=== PATIENT | female | born 2000 | race Two or more races ===

== ENCOUNTER 2021-02-17 10:15 | Outpatient (CLI) | payer OTHER | END 2021-02-17 10:30 | disposition home or self-care (01) | LOC: PPH VACUNA 10:15 | PROVIDERS: ATTEND Emergency Medicine Pediatric Emergency Medicine | DX: Z23 Encounter for immunization (principal) ==

== ENCOUNTER 2021-10-26 08:28 | Emergency (ER) | payer OTHER ==
[~2021-10-26] VITALS: Ht 160 cm; Wt 110.2 kg
== END 2021-10-26 15:09 | disposition left against medical advice (07) ==
LOC: ER 08:28
DX: K52.9 Noninfective gastroenteritis and colitis, unspecified (principal)

== ENCOUNTER → 2022-10-15 | Emergency (ER) | payer OTHER ==
[~2022-10-15] VITALS: Ht 160 cm; Wt 99.8 kg
[~2022-10-15] MED LIST: TUSNEL LIQUID178 ML PO; ZITHROMAX500 MG PO; ZYRTEC10 MG PO
== END | disposition home or self-care (01) ==
LOC: ER 09:51
PROVIDERS: General Practice
DX: B34.9 Viral infection, unspecified (principal); R53.81 Other malaise; Z20.822 Contact with and (suspected) exposure to COVID-19

== ENCOUNTER 2022-10-25 12:02 | Emergency (ER) | payer OTHER ==
[~2022-10-25] VITALS: Ht 160 cm; Wt 99.8 kg
== END 2022-10-25 14:53 | disposition home or self-care (01) ==
LOC: ER 12:02
DX: J10.1 Influenza due to other identified influenza virus with other respiratory manifestations (principal)

== ENCOUNTER 2022-12-12 15:22 | Outpatient (CLI) | payer OTHER ==
[2022-12-12 15:36] LABS: HEMATOCRIT 30.5 % (36.0-45.00); HEMOGLOBIN 9.3 g/dL (12.0-15.00); MEAN CELL VOLUME 66.9 fL (80.00-100.00); MEAN CORPUSCULAR HEMOGLOBIN 20.4 pg (27.00-32.0); MEAN CORPUSCULAR HGB CONC 30.5 g/dl (32.0-36.0); PLATELET COUNT 513 K/uL (150-450); RED BLOOD COUNT 4.55 M/uL (4.00-6.00); RED CELL DISTRIBUTION WIDTH 18.5 % (11.5-14.5)
== END 2022-12-12 15:23 | disposition home or self-care (01) ==
LOC: LAB 15:22
PROVIDERS: ATTEND General Practice
DX: D64.9 Anemia, unspecified (principal)

== ENCOUNTER 2023-04-23 13:00 | Outpatient (CLI) | payer OTHER | END 2023-04-23 13:10 | disposition home or self-care (01) | LOC: PPH VACUNA 13:00 | PROVIDERS: ATTEND Emergency Medicine Pediatric Emergency Medicine | DX: Z23 Encounter for immunization (principal) ==

== ENCOUNTER 2023-05-14 12:36 | Inpatient (IN) | payer OTHER ==
[~2023-05-14] VITALS: Ht 160 cm; Wt 113.4 kg
--- NOTE | 2023-05-14 14:10 | NUR ---
PTE ALERTA Y ORIENTADA X3 REFIERE VENIR A MARIA LUZ DEBIDO A QUE LA MISMA TIENE DOLOR DE JASSI, DOLOR CORPORAL, ESCALOFRIOS Y DOLOR EN LA [place]. SE BOB S/V Y SE COLOCA EN MARIA LUZ DE ESPERA.
[2023-05-14] MEDS ORDERED: IPRATROPIUM BROMIDE 0.5 MG/2.5 ML AMPUL.NEB IH ONE (15:00)
[2023-05-14] MEDS ORDERED: LEVALBUTEROL HCL 0.63 MG/3 ML SOLUTION IH ONE (15:00)
--- NOTE | 2023-05-14 15:27 | NUR ---
PACIENTE ALERTA Y ORIENTADA X 3. SE ORIENTA DE TRATAMIENTO MILENA ORDEN MEDICA REFIERE ENTENDER. SE BOB MUESTRAS CON MEDIDAS ASEPTICAS CORRESPONDIENTES Y SE NOTIFICAN TERAPIAS A MR SIHLO TERAPISTA RESPIRATORIO.
[2023-05-14 15:38] LABS: MEAN CORPUSCULAR HGB CONC 30.2 g/dl (32.0-36.0); PLATELET COUNT 540 K/uL (150-450); RED BLOOD COUNT 4.54 M/uL (4.00-6.00); RED CELL DISTRIBUTION WIDTH 19.3 % (11.5-14.5)
[2023-05-14 15:39] LABS: MEAN CELL VOLUME 57.6 fL (80.00-100.00); MEAN CORPUSCULAR HEMOGLOBIN 17.4 pg (27.00-32.0)
[2023-05-14 15:43] LABS: HEMOGLOBIN 7.9 g/dL (12.0-15.00)
[2023-05-14 15:44] LABS: HEMATOCRIT 26.1 % (36.0-45.00)
[2023-05-14 18:00] LABS: PH,URINE 6.5 (5.0-8.0); URINE APPEARANCE Cloudy; URINE BILIRRUBIN Negative (NEGATIVE); URINE BLOOD Negative; URINE COLOR Yellow; URINE GLUCOSE Negative (NEGATIVE); URINE LEUKOCYTE Trace; URINE NITRATE Negative; URINE PROTEIN Negative (NEGATIVE)
[2023-05-14 18:03] LABS: URINE BACTERIA 3372.9 uL (0.0-1933); URINE EPITHELIAL CELLS 37.2 uL (0.0-38.8); URINE RBC 2.5 uL (0.0-20.8)
[2023-05-14 18:31] LABS: BILIRUBIN TOTAL 0.35 mg/dL (0.3-1.2); CALCIUM 8.7 mg/dL (8.5-10.1); CREATININE SERUM 0.74 mg/dL (0.55-1.02); GFR 97.25; GLOBULINA 4.8 G/DL (2.4-3.5); POTASSIUM 4.54 mEq/L (3.5-5.1); TOTAL PROTEIN 7.8 gm/dL (6.4-8.2)
[2023-05-14] MEDS ORDERED: FAMOTIDINE/PF 20 MG in 0.9 % SODIUM CHLORIDE 8 ML IV PUSH SCH (19:54)
[2023-05-14] MEDS ORDERED: IRON FUM,PS/FOLIC/BCOMP,C NO.9 1 CAP CAPSULE PO SCH (19:54)
[2023-05-14] MEDS ORDERED: MONTELUKAST SODIUM 10 MG TABLET PO SCH (19:56)
[2023-05-14] MEDS ORDERED: 0.9 % SODIUM CHLORIDE 1,000 ML IV SCH (20:00)
[2023-05-14] MEDS ORDERED: ACETAMINOPHEN 500 MG GEL..CAP PO PRN (20:00)
[2023-05-14 21:51] LABS: INR 1.04; PARTIAL THROMBOPLASTIN TIME 27.7 SECONDS (22.0-34.0); PROTHROMBIN TIME 10.9 SECONDS (9.0-11.5)
[2023-05-15] MEDS ORDERED: IPRATROPIUM BROMIDE 0.5 MG/2.5 ML AMPUL.NEB IH SCH (01:00)
[2023-05-15 20:32] LABS: HEMATOCRIT 31.3 % (36.0-45.00); MEAN CORPUSCULAR HGB CONC 31.3 g/dl (32.0-36.0); PLATELET COUNT 555 K/uL (150-450); RED BLOOD COUNT 5.16 M/uL (4.00-6.00)
[2023-05-15 20:33] LABS: HEMOGLOBIN 9.8 g/dL (12.0-15.00); MEAN CELL VOLUME 60.6 fL (80.00-100.00); MEAN CORPUSCULAR HEMOGLOBIN 18.9 pg (27.00-32.0); RED CELL DISTRIBUTION WIDTH 24.8 % (11.5-14.5)
== END 2023-05-16 09:05 | disposition home or self-care (01) | DRG 812 ==
LOC: ER 12:36 → MEDI 20:31 → OB/GYN 20:31 → MEDI 20:54
PROVIDERS: General Practice; ADMIT Internal Medicine; ATTEND Internal Medicine
PROC: 30233N1 Transfusion of Nonautologous Red Blood Cells into Peripheral Vein, Percutaneous Approach (ICD-10-PCS; principal; 2023-05-15)
DX: D64.9 Anemia, unspecified (principal); N92.1 Excessive and frequent menstruation with irregular cycle

== ENCOUNTER 2023-05-31 06:54 | Outpatient (CLI) | payer OTHER ==
[2023-05-31 08:40] LABS: HEMATOCRIT 33.1 % (36.0-45.00); MEAN CORPUSCULAR HGB CONC 31.1 g/dl (32.0-36.0); PLATELET COUNT 510 K/uL (150-450); RED BLOOD COUNT 5.14 M/uL (4.00-6.00)
[2023-05-31 08:53] LABS: HEMOGLOBIN 10.3 g/dL (12.0-15.00); MEAN CELL VOLUME 64.4 fL (80.00-100.00); RED CELL DISTRIBUTION WIDTH 27.8 % (11.5-14.5)
== END 2023-05-31 23:00 | disposition home or self-care (01) ==
LOC: LAB 06:54
DX: D64.9 Anemia, unspecified (principal)

== ENCOUNTER 2023-08-30 06:56 | Emergency (ER) | payer OTHER ==
[~2023-08-30] VITALS: Ht 160 cm; Wt 120.7 kg
[2023-08-30] MEDS ORDERED: 0.9 % SODIUM CHLORIDE 1,000 ML IV STA (08:26)
[2023-08-30] MEDS ORDERED: FAMOtidine 10 MG/ML (4ML VIAL) IV STA (08:27)
[2023-08-30] MEDS ORDERED: ONDANSETRON HCL 2 MG/ML VIAL IV ONE (08:30)
[2023-08-30 09:12] LABS: HEMATOCRIT 34.9 % (36.0-45.00); HEMOGLOBIN 11.6 g/dL (12.0-15.00); MEAN CORPUSCULAR HEMOGLOBIN 22.6 pg (27.00-32.0); MEAN CORPUSCULAR HGB CONC 33.3 g/dl (32.0-36.0); PLATELET COUNT 384 K/uL (150-450); RED BLOOD COUNT 5.14 M/uL (4.00-6.00)
[2023-08-30 09:19] LABS: MEAN CELL VOLUME 67.9 fL (80.00-100.00)
[2023-08-30 09:38] LABS: CALCIUM 8.7 mg/dL (8.5-10.1); CREATININE SERUM 0.83 mg/dL (0.55-1.02); GFR 85.19; POTASSIUM 3.97 mEq/L (3.5-5.1)
[2023-08-30] MEDS ORDERED: CIPROFLOXACIN IN 5 % DEXTROSE 400 MG/200 ML PIGGYBAG IV STA (13:24)
[2023-08-30] MEDS ORDERED: METRONIDAZOLE/SODIUM CHLORIDE 500 MG/100 ML PIGGYBACK IV STA (13:25)
== END 2023-08-30 17:15 | disposition home or self-care (01) ==
LOC: ER 07:05
PROVIDERS: General Practice
DX: A04.9 Bacterial intestinal infection, unspecified (principal)

== ENCOUNTER 2023-10-03 11:22 | Outpatient (CLI) | payer OTHER ==
[2023-10-03 11:54] LABS: HEMATOCRIT 32.3 % (36.0-45.00); HEMOGLOBIN 10.6 g/dL (12.0-15.00); MEAN CORPUSCULAR HEMOGLOBIN 22.7 pg (27.00-32.0); MEAN CORPUSCULAR HGB CONC 32.7 g/dl (32.0-36.0); PLATELET COUNT 502 K/uL (150-450); RED BLOOD COUNT 4.64 M/uL (4.00-6.00); RED CELL DISTRIBUTION WIDTH 17.8 % (11.5-14.5)
[2023-10-03 11:55] LABS: MEAN CELL VOLUME 69.5 fL (80.00-100.00)
== END 2023-10-03 11:49 | disposition home or self-care (01) ==
LOC: LAB 11:22
PROVIDERS: ATTEND Internal Medicine Cardiovascular Disease
DX: D65 Disseminated intravascular coagulation [defibrination syndrome] (principal)

== ENCOUNTER 2023-10-07 12:42 | Emergency (ER) | payer OTHER ==
[~2023-10-07] VITALS: Ht 160 cm; Wt 117.9 kg
[2023-10-07 14:58] LABS: HEMATOCRIT 28.5 % (36.0-45.00); HEMOGLOBIN 9.3 g/dL (12.0-15.00); MEAN CORPUSCULAR HEMOGLOBIN 22.6 pg (27.00-32.0); MEAN CORPUSCULAR HGB CONC 32.6 g/dl (32.0-36.0); PLATELET COUNT 482 K/uL (150-450); RED BLOOD COUNT 4.12 M/uL (4.00-6.00); RED CELL DISTRIBUTION WIDTH 17.5 % (11.5-14.5)
[2023-10-07 14:59] LABS: MEAN CELL VOLUME 69.3 fL (80.00-100.00)
[2023-10-07 15:17] LABS: INR 1.04; PROTHROMBIN TIME 11.3 SECONDS (9.0-11.5)
[2023-10-07 15:20] LABS: ALBUMIN 3.1 gm/dL (3.4-5.0); BILIRUBIN TOTAL 0.33 mg/dL (0.3-1.2); CALCIUM 8.7 mg/dL (8.5-10.1); CREATININE SERUM 0.76 mg/dL (0.55-1.02); GFR 94.31; GLOBULINA 5.2 G/DL (2.4-3.5); POTASSIUM 3.78 mEq/L (3.5-5.1); TOTAL PROTEIN 8.3 gm/dL (6.4-8.2)
== END 2023-10-07 16:03 | disposition home or self-care (01) ==
LOC: ER 12:42
PROVIDERS: General Practice
DX: N92.5 Other specified irregular menstruation (principal)

== ENCOUNTER 2023-10-25 10:51 | Outpatient (CLI) | payer OTHER ==
[2023-10-25 12:16] LABS: MEAN CORPUSCULAR HGB CONC 30.8 g/dl (32.0-36.0); PLATELET COUNT 567 K/uL (150-450); RED BLOOD COUNT 3.39 M/uL (4.00-6.00); RED CELL DISTRIBUTION WIDTH 18.5 % (11.5-14.5)
[2023-10-25 12:20] LABS: HEMATOCRIT 22.3 % (36.0-45.00); HEMOGLOBIN 6.9 g/dL (12.0-15.00); MEAN CELL VOLUME 65.8 fL (80.00-100.00); MEAN CORPUSCULAR HEMOGLOBIN 20.3 pg (27.00-32.0)
== END 2023-10-25 10:58 | disposition home or self-care (01) ==
LOC: LAB 10:51
PROVIDERS: ATTEND Internal Medicine
DX: D68.9 Coagulation defect, unspecified (principal)

== ENCOUNTER 2023-10-25 12:44 | Inpatient (IN) | payer OTHER ==
[~2023-10-25] VITALS: Ht 160 cm; Wt 117.9 kg
[2023-10-25] MEDS ORDERED: 0.9 % SODIUM CHLORIDE 1,000 ML IV SCH (14:30)
[2023-10-25 14:47] LABS: MEAN CORPUSCULAR HGB CONC 30.8 g/dl (32.0-36.0); PLATELET COUNT 500 K/uL (150-450); RED BLOOD COUNT 3.11 M/uL (4.00-6.00); RED CELL DISTRIBUTION WIDTH 18.1 % (11.5-14.5)
[2023-10-25 14:48] LABS: MEAN CORPUSCULAR HEMOGLOBIN 20.2 pg (27.00-32.0)
[2023-10-25 14:50] LABS: HEMATOCRIT 20.4 % (36.0-45.00); HEMOGLOBIN 6.3 g/dL (12.0-15.00); MEAN CELL VOLUME 65.6 fL (80.00-100.00)
[2023-10-25 15:10] LABS: INR 1.04; PARTIAL THROMBOPLASTIN TIME 24.3 SECONDS (22.0-34.0); PROTHROMBIN TIME 11.3 SECONDS (9.0-11.5)
[2023-10-25 15:11] LABS: CALCIUM 8.5 mg/dL (8.5-10.1); CREATININE SERUM 0.8 mg/dL (0.55-1.02); GFR 88.89; POTASSIUM 3.34 mEq/L (3.5-5.1)
[2023-10-25] MEDS ORDERED: RINGERS SOLUTION,LACTATED 1,000 ML IV SCH (16:00)
[2023-10-25 16:37] LABS: MEAN CORPUSCULAR HGB CONC 30.7 g/dl (32.0-36.0); PLATELET COUNT 514 K/uL (150-450); RED BLOOD COUNT 3.15 M/uL (4.00-6.00); RED CELL DISTRIBUTION WIDTH 17.9 % (11.5-14.5)
[2023-10-25 16:39] LABS: HEMATOCRIT 20.7 % (36.0-45.00); MEAN CELL VOLUME 65.6 fL (80.00-100.00)
[2023-10-25 16:41] LABS: HEMOGLOBIN 6.3 g/dL (12.0-15.00)
[2023-10-25] MEDS ORDERED: FERROUS SULFATE 325 MG TABLET.EC PO SCH (17:00)
[2023-10-25 17:27] VITALS: BP 130/84; O2SAT 100
[2023-10-25 19:21] VITALS: BP 137/82; O2SAT 100
[2023-10-26 01:54] VITALS: BP 108/66
[2023-10-26 09:00] VITALS: BP 134/87
[2023-10-26] MEDS ORDERED: ACETAMINOPHEN 500 MG GEL..CAP PO PRN (10:00)
[2023-10-26 11:45] LABS: HEMATOCRIT 24.9 % (36.0-45.00); MEAN CORPUSCULAR HGB CONC 32.7 g/dl (32.0-36.0); RED BLOOD COUNT 3.56 M/uL (4.00-6.00)
[2023-10-26 11:47] LABS: HEMOGLOBIN 8.1 g/dL (12.0-15.00); MEAN CORPUSCULAR HEMOGLOBIN 22.7 pg (27.00-32.0); PLATELET COUNT 443 K/uL (150-450)
[2023-10-26 12:04] LABS: RED CELL DISTRIBUTION WIDTH 22.2 % (11.5-14.5)
[2023-10-26 17:00] VITALS: BP 111/74
[2023-10-26 22:00] VITALS: BP 133/81
[2023-10-27 01:30] VITALS: BP 123/62
[2023-10-27 05:54] VITALS: BP 110/71
[2023-10-27 09:53] VITALS: BP 122/82
== END 2023-10-27 13:10 | disposition home or self-care (01) | DRG 812 ==
LOC: ER 12:44 → OB/GYN 15:55
PROVIDERS: Emergency Medicine; ADMIT General Practice; ATTEND General Practice
PROC: 30233N1 Transfusion of Nonautologous Red Blood Cells into Peripheral Vein, Percutaneous Approach (ICD-10-PCS; principal; 2023-10-25)
PROC: BU4CZZZ Ultrasonography of Uterus and Ovaries (ICD-10-PCS; 2023-10-26)
DX: D64.9 Anemia, unspecified (principal); N93.9 Abnormal uterine and vaginal bleeding, unspecified; Z20.822 Contact with and (suspected) exposure to COVID-19

== ENCOUNTER 2023-11-18 07:10 | Outpatient (CLI) | payer OTHER ==
[2023-11-18 08:20] LABS: HEMATOCRIT 29.5 % (36.0-45.00); HEMOGLOBIN 9.4 g/dL (12.0-15.00); MEAN CORPUSCULAR HEMOGLOBIN 21.5 pg (27.00-32.0); MEAN CORPUSCULAR HGB CONC 31.9 g/dl (32.0-36.0); PLATELET COUNT 526 K/uL (150-450); RED CELL DISTRIBUTION WIDTH 22.5 % (11.5-14.5)
[2023-11-18 08:23] LABS: MEAN CELL VOLUME 67.1 fL (80.00-100.00)
[2023-11-18 08:29] LABS: PH,URINE 5.5 (5.0-8.0); URINE APPEARANCE Clear; URINE BILIRRUBIN Negative (NEGATIVE); URINE BLOOD Negative; URINE COLOR Yellow; URINE GLUCOSE Negative (NEGATIVE); URINE KETONE Negative (NEGATIVE); URINE LEUKOCYTE Negative; URINE NITRATE Negative; URINE PROTEIN Trace (NEGATIVE); URINE UROBILINOGEN 0.2 E.U./dl
[2023-11-18 08:30] LABS: URINE BACTERIA 1689.5 uL (0.0-1933); URINE EPITHELIAL CELLS 29.3 uL (0.0-38.8); URINE WBC 38.3 uL (0.0-23.2)
[2023-11-18 09:39] LABS: ALBUMIN 3.1 gm/dL (3.4-5.0); BILIRUBIN TOTAL 0.67 mg/dL (0.3-1.2); CALCIUM 8.8 mg/dL (8.5-10.1); CREATININE SERUM 0.75 mg/dL (0.55-1.02); GFR 94.94; POTASSIUM 4.2 mEq/L (3.5-5.1); T4 FREE 1.29 NG/ML (0.76-1.46); TOTAL PROTEIN 8.1 gm/dL (6.4-8.2); TSH 2.96 uIU/mL (0.358-3.74)
[2023-11-18 10:58] LABS: FOLIC ACID 11.75 ng/ml (4.78-20); VITAMIN D3 25 HYDROXY 19.4 ng/ml (30-120)
[2023-11-19 09:11] LABS: FOLLICLE STIMULATING HORMONE 2.2 mIU/mL (.); LEUTEINIZING HORMONE 5.9 mIU/mL (.); PROGESTERONA 8.6 ng/mL (.); PROLACTIN 15.5 ng/mL (4.8-33.4)
== END 2023-11-18 07:11 | disposition home or self-care (01) ==
LOC: LAB 07:10
DX: N93.9 Abnormal uterine and vaginal bleeding, unspecified (principal); D50.9 Iron deficiency anemia, unspecified; E66.01 Morbid (severe) obesity due to excess calories; E55.9 Vitamin D deficiency, unspecified; N94.6 Dysmenorrhea, unspecified; E78.00 Pure hypercholesterolemia, unspecified; R73.9 Hyperglycemia, unspecified

== ENCOUNTER 2023-12-06 07:42 | Emergency (ER) | payer OTHER ==
[~2023-12-06] VITALS: Ht 160 cm; Wt 122.5 kg
[2023-12-06] MEDS ORDERED: IRON236 MG (07:56)
== END 2023-12-06 09:09 | disposition home or self-care (01) ==
LOC: ER 07:42
DX: S61.252A Open bite of right middle finger without damage to nail, initial encounter (principal); S61.250A Open bite of right index finger without damage to nail, initial encounter; W54.0XXA Bitten by dog, initial encounter; Y93.89 Activity, other specified; Y92.89 Other specified places as the place of occurrence of the external cause; J45.909 Unspecified asthma, uncomplicated

== ENCOUNTER 2023-12-25 19:51 | Emergency (ER) | payer OTHER ==
[~2023-12-25] VITALS: Ht 160 cm; Wt 126.1 kg
[~2023-12-25 19:51] MED LIST changes: +IRON236 MG
[2023-12-25 20:08] VITALS: BP 142/91; O2SAT 100
[2023-12-25] MEDS ORDERED: KETOROLAC TROMETHAMINE 15 MG VIAL IM STA (21:02)
[2023-12-25] MEDS ORDERED: CEFTRIAXONE SODIUM 1,000 MG VIAL IM STA (21:03)
[2023-12-25] MEDS ORDERED: CORTISPORIN EAR10 M1 OTIC (22:46)
[2023-12-25] MEDS ORDERED: ZITHROMAX500 MG PO (22:46)
== END 2023-12-25 22:51 | disposition home or self-care (01) ==
LOC: ER 19:53
DX: J02.9 Acute pharyngitis, unspecified (principal); H66.92 Otitis media, unspecified, left ear

== ENCOUNTER 2024-01-22 16:26 | Emergency (ER) | payer OTHER ==
[~2024-01-22] VITALS: Ht 160 cm; Wt 122.5 kg
[~2024-01-22 16:26] MED LIST changes: +CORTISPORIN EAR10 M1 OTIC
[2024-01-22] MEDS ORDERED: PROAIR RESPICL90 MCG (16:46)
[2024-01-22] MEDS ORDERED: IPRATROPIUM/ALBUTEROL SULFATE 3 ML AMPUL.NEB IH ONE (19:00)
== END 2024-01-22 21:02 | disposition home or self-care (01) ==
LOC: ER 16:26
DX: J45.901 Unspecified asthma with (acute) exacerbation (principal)

== ENCOUNTER 2024-02-25 14:46 | Outpatient (CLI) | payer OTHER ==
[~2024-02-25 14:46] MED LIST changes: +PROAIR RESPICL90 MCG
[2024-02-25 15:27] LABS: HEMATOCRIT 27.1 % (36.0-45.00); MEAN CORPUSCULAR HGB CONC 31.6 g/dl (32.0-36.0); PLATELET COUNT 508 K/uL (150-450); RED BLOOD COUNT 4.28 M/uL (4.00-6.00); RED CELL DISTRIBUTION WIDTH 20.5 % (11.5-14.5)
[2024-02-25 15:50] LABS: HEMOGLOBIN 8.6 g/dL (12.0-15.00); MEAN CELL VOLUME 63.2 fL (80.00-100.00)
== END 2024-02-25 23:00 | disposition home or self-care (01) ==
LOC: LAB 14:46
PROVIDERS: ATTEND Internal Medicine
DX: D65 Disseminated intravascular coagulation [defibrination syndrome] (principal)

== ENCOUNTER 2024-02-26 12:47 | Emergency (ER) | payer OTHER ==
[~2024-02-26] VITALS: Ht 160 cm; Wt 125.2 kg
[2024-02-26 14:56] LABS: HEMATOCRIT 26.9 % (36.0-45.00); MEAN CORPUSCULAR HGB CONC 31.2 g/dl (32.0-36.0); PLATELET COUNT 477 K/uL (150-450); RED CELL DISTRIBUTION WIDTH 20.3 % (11.5-14.5)
[2024-02-26 14:58] LABS: HEMOGLOBIN 8.4 g/dL (12.0-15.00); MEAN CELL VOLUME 64.1 fL (80.00-100.00)
[2024-02-26 15:04] LABS: CALCIUM 8.6 mg/dL (8.5-10.1); CREATININE SERUM 1.02 mg/dL (0.55-1.02); GFR 66.58; POTASSIUM 3.84 mEq/L (3.5-5.1)
== END 2024-02-26 15:10 | disposition home or self-care (01) ==
LOC: ER 12:47
PROVIDERS: General Practice
DX: D64.89 Other specified anemias (principal)

== ENCOUNTER 2024-03-06 09:12 | Outpatient (CLI) | payer OTHER ==
[2024-03-06 09:52] LABS: MEAN CORPUSCULAR HGB CONC 30.9 g/dl (32.0-36.0); PLATELET COUNT 507 K/uL (150-450); RED BLOOD COUNT 3.66 M/uL (4.00-6.00); RED CELL DISTRIBUTION WIDTH 19.7 % (11.5-14.5)
[2024-03-06 10:13] LABS: HEMATOCRIT 23.4 % (36.0-45.00); MEAN CELL VOLUME 63.8 fL (80.00-100.00); MEAN CORPUSCULAR HEMOGLOBIN 19.6 pg (27.00-32.0)
[2024-03-06 10:14] LABS: HEMOGLOBIN 7.2 g/dL (12.0-15.00)
== END 2024-03-06 09:30 | disposition home or self-care (01) ==
LOC: LAB 09:12
PROVIDERS: ATTEND Internal Medicine Cardiovascular Disease
DX: Z00.00 Encounter for general adult medical examination without abnormal findings (principal)

== ENCOUNTER 2024-03-06 12:07 | Inpatient (IN) | payer OTHER ==
[~2024-03-06] VITALS: Ht 160 cm; Wt 122.5 kg
--- NOTE | 2024-03-06 13:49 | NUR ---
PTE ALERTA Y ORIENTADA X3 REFIERE VENIR A MARIA LUZ DEBIDO A QUE LA MISMA TIENE REWSULTADOS DE LABORATORIOS DE [facility] CON VALORES DE HEMOGLOBINA EN (7.2) SE MIDEN S/V Y SE UBICA.
[2024-03-06] MEDS ORDERED: 0.9 % SODIUM CHLORIDE 1,000 ML IV STA (14:01)
--- NOTE | 2024-03-06 14:49 | NUR ---
PTE ALERTA Y ORIENTADA X3 ES EVLAUADA POR EL DR. AGUAYO. SE OIRNETA OSBRE TRATAMIENTO, VERBALIZA ENTENDER. RAFAEL Kim ROSADA CNALIZA X2 EN BAZO DERECHO, COLECT AMUESTRA DE LAB Y ADMINISTRA MEDICAMENTO MILENA ORDEN MEDICA BAJO MEDIDAS ASEPTICAS. SE REQUISA 2 UNIDADES DE PRBC, SE OTMAN TUBOS PILITOS Y SE LLEVAN A LABORATORIO. BANCO DE JOVANNY REFIERE PTE CON RECORD. PTE FIRMA CONSENTIMINETO Y SE COLOCA EN RECORD DE PTE.
[2024-03-06 15:06] LABS: MEAN CORPUSCULAR HGB CONC 30.6 g/dl (32.0-36.0); PLATELET COUNT 522 K/uL (150-450); RED BLOOD COUNT 3.64 M/uL (4.00-6.00); RED CELL DISTRIBUTION WIDTH 19.9 % (11.5-14.5)
[2024-03-06 15:09] LABS: HEMATOCRIT 23.2 % (36.0-45.00); MEAN CELL VOLUME 63.8 fL (80.00-100.00); MEAN CORPUSCULAR HEMOGLOBIN 19.5 pg (27.00-32.0)
[2024-03-06 15:12] LABS: CALCIUM 8.5 mg/dL (8.5-10.1); CREATININE SERUM 0.81 mg/dL (0.55-1.02); GFR 86.87; POTASSIUM 3.64 mEq/L (3.5-5.1)
[2024-03-06 15:13] LABS: HEMOGLOBIN 7.1 g/dL (12.0-15.00); INR 1.01; PARTIAL THROMBOPLASTIN TIME 24.4 SECONDS (22.0-34.0)
[2024-03-06 15:22] LABS: URINE APPEARANCE Cloudy; URINE BILIRRUBIN Negative (NEGATIVE); URINE BLOOD Large; URINE COLOR Orange; URINE GLUCOSE Negative (NEGATIVE); URINE KETONE Negative (NEGATIVE); URINE LEUKOCYTE Trace; URINE NITRATE Negative
[2024-03-06 15:25] LABS: URINE BACTERIA 1389.2 uL (0.0-1933); URINE EPITHELIAL CELLS 7.4 uL (0.0-38.8); URINE RBC 9133.1 uL (0.0-20.8); URINE WBC 50.9 uL (0.0-23.2)
[2024-03-06 15:27] LABS: URINE CAST 0.14 uL (0.0-1.40); URINE PROTEIN 100 (NEGATIVE)
[2024-03-06 19:45] VITALS: BP 114/80; O2SAT 100
[2024-03-06] MEDS ORDERED: ACETAMINOPHEN 500 MG GEL..CAP PO PRN (22:00)
[2024-03-07 00:23] VITALS: BP 105/65
[2024-03-07 05:53] VITALS: BP 119/80
[2024-03-07] MEDS ORDERED: PATIENTS OWN MEDICATION (MEDICAMENTO EN PISO) IM ONE (08:00)
[2024-03-07 08:59] LABS: HEMATOCRIT 29.3 % (36.0-45.00); HEMOGLOBIN 9.5 g/dL (12.0-15.00); MEAN CELL VOLUME 66.7 fL (80.00-100.00); MEAN CORPUSCULAR HEMOGLOBIN 21.6 pg (27.00-32.0); MEAN CORPUSCULAR HGB CONC 32.4 g/dl (32.0-36.0); PLATELET COUNT 464 K/uL (150-450); RED BLOOD COUNT 4.39 M/uL (4.00-6.00); RED CELL DISTRIBUTION WIDTH 23.2 % (11.5-14.5)
[2024-03-07] MEDS ORDERED: FERROUS SULFATE 325 MG TABLET.EC PO SCH (09:00)
[2024-03-07 10:36] VITALS: BP 115/84
== END 2024-03-07 13:32 | disposition home or self-care (01) | DRG 812 ==
LOC: ER 12:38 → OB/GYN 18:27
PROVIDERS: Emergency Medicine; ADMIT General Practice; ATTEND General Practice
PROC: 30233N1 Transfusion of Nonautologous Red Blood Cells into Peripheral Vein, Percutaneous Approach (ICD-10-PCS; principal; 2024-03-06)
PROC: BU4CZZZ Ultrasonography of Uterus and Ovaries (ICD-10-PCS; 2024-03-06)
DX: D64.9 Anemia, unspecified (principal); N93.9 Abnormal uterine and vaginal bleeding, unspecified

== ENCOUNTER 2024-03-10 14:07 | Outpatient (CLI) | payer OTHER | END 2024-03-10 14:15 | disposition home or self-care (01) | LOC: RAD 14:07 | PROVIDERS: ATTEND General Practice | DX: M25.552 Pain in left hip (principal); M25.562 Pain in left knee ==

== ENCOUNTER 2024-04-07 14:50 | Outpatient (CLI) | payer OTHER ==
[2024-04-09 06:09] LABS: HEPATITIS A ANTIBODY IGG Positive (Negative); HEPATITIS B SURFACE ANTIBODY Reactive (.); HEPATITIS C VIRUS ANTIBODY Non Reactive (Non Reactive)
== END 2024-04-07 14:51 | disposition home or self-care (01) ==
LOC: LAB 14:50
DX: A64 Unspecified sexually transmitted disease (principal); B19.9 Unspecified viral hepatitis without hepatic coma

== ENCOUNTER → 2024-07-06 | Emergency (ER) | payer OTHER | END | disposition left against medical advice (07) | LOC: ER 13:01 | DX: Z53.21 Procedure and treatment not carried out due to patient leaving prior to being seen by health care provider (principal) ==

== ENCOUNTER 2024-10-21 08:33 | Outpatient (CLI) | payer OTHER ==
[2024-10-21 09:48] LABS: BASO % 0.4 % (0.1-1.2); EOS # 0.16 (0.04-0.54); EOS % 1.6 % (0.7-7.0); LYMPH # 2.96 (1.18-3.74); LYMPH % 28.9 % (19.3-53.1); MEAN PLATELET VOLUME 9.50 fl (9.4-12.4); MONO # 0.81 (0.24-0.82); MONO % 7.9 % (4.7-12.5); NEUT # 6.24 (1.56-6.13); NEUT % 60.8 % (34.0-71.1); RED CELL DISTRIBUTION WIDTH 17.8 % (11.6-14.4)
[2024-10-21 10:59] LABS: ALT/SGPT 18.0 U/L (12-78); AST/SGOT 11.0 U/L (15-37); BILIRUBIN TOTAL 0.5 mg/dL (0.3-1.2); BUN CREA RATIO 15.0 (7.0-25.0); CHOL HDL RATIO 2.9 (0-5.0); CREATININE SERUM 0.68 mg/dL (0.55-1.02); GFR 106.3; GLOBULINA 4.9 G/DL (2.4-3.5); GLUCOSE FASTING 92.0 mg/dL (65-100); HDL 37.0 mg/dl (40-60); LDL 60.0 mg/dl (0-130); OSMOLALITY SERUM 280.0 MOSM/KG (275-295); TSH 2.11 uIU/mL (0.358-3.74); VLDL 12.0 (0-39)
== END 2024-10-21 09:41 | disposition home or self-care (01) ==
LOC: LAB 08:33
PROVIDERS: ATTEND Internal Medicine
DX: D64.9 Anemia, unspecified (principal); B19.9 Unspecified viral hepatitis without hepatic coma; Z13.220 Encounter for screening for lipoid disorders

== ENCOUNTER 2024-12-22 14:12 | Outpatient (CLI) | payer OTHER | END 2024-12-22 14:22 | disposition home or self-care (01) | LOC: PPH VACUNA 14:12 | PROVIDERS: ATTEND Emergency Medicine Pediatric Emergency Medicine | DX: Z23 Encounter for immunization (principal) ==

== ENCOUNTER 2025-02-08 08:20 | Outpatient (CLI) | payer OTHER ==
[2025-02-08 08:51] LABS: BASO % 0.2 % (0.1-1.2); EOS # 0.23 (0.04-0.54); EOS % 1.9 % (0.7-7.0); LYMPH # 3.94 (1.18-3.74); LYMPH % 32.2 % (19.3-53.1); MEAN PLATELET VOLUME 9.40 fl (9.4-12.4); MONO # 0.91 (0.24-0.82); MONO % 7.4 % (4.7-12.5); NEUT # 7.11 (1.56-6.13); NEUT % 58.1 % (34.0-71.1); RED CELL DISTRIBUTION WIDTH 17.3 % (11.6-14.4)
== END 2025-02-08 08:25 | disposition home or self-care (01) ==
LOC: LAB 08:20
PROVIDERS: ATTEND Internal Medicine
DX: D64.9 Anemia, unspecified (principal)